=== PATIENT | male | born 1970 | race Caucasian/White ===

== ENCOUNTER 2018-02-16 13:30 | Observation (INO) | payer OTHER ==
[2018-02-16 14:01] LABS: #Basophils 0.1 thou/uL (0.0-0.2); #Eosinphils 0.1 thou/uL (0.0-0.7); #Lymphocytes 2.1 thou/uL (1.20-3.40); #Monocytes 0.7 thou/uL (0.11-0.59); #Neutrophils 6.9 thou/uL (1.40-6.50); %Basophils 1.2 % (0.0-1.0); %Lymphocytes 21.2 % (21.0-51.0); %Monocytes 7.2 % (0.0-10.0); %Neutrophils 69.4 % (42.0-75.0); Hemoglobin 14.1 g/dL (14.0-18.0); Mean Corpuscular HGB CONC 33.5 g/dL (32.0-36.0); Mean Corpuscular Hemoglobin 27.1 pg (27.0-31.0); Mean Corpuscular Volume 80.8 fl (80.0-94.0); Mean Platelet Volume 9.5 fL (7.4-10.4); Platelet Count 181 thou/uL (130-400); Red Blood Cell (RBC) Count 5.22 mill/uL (4.70-6.10)
[2018-02-16] MEDS ORDERED: Nitroglycerin 2% Ointment 1 INCH/1 GM Packet ONE (14:07)
[2018-02-16 14:15] LABS: ALT (SGPT) 34 U/L (8-55); AST (SGOT) 28 U/L (5-34); Albumin 4.3 g/dL (3.5-5.0); Alkaline Phosphatase 84 U/L (40-150); Anion Gap 12 mmol/L (10-20); BUN (Urea Nitrogen) 8 mg/dL (8.9-20.6); CKMB 1.4 ng/mL (0-6.6); Calc. Creatinine Clearance 0 mL/min (70-130); Calcium 9.1 mg/dL (7.8-10.44); Carbon Dioxide 28 mmol/L (22-29); Chloride 105 mmol/L (98-107); Estimated GFR-MDRD 58; Globulin 2.4 g/dL (2.4-3.5); Glucose 91 mg/dL (70-105); Lipase 23 U/L (8-78); Potassium 3.9 mmol/L (3.5-5.1); Protein, Total 6.7 g/dL (6.0-8.3); Sodium 141 mmol/L (136-145); Troponin I Less than 0.010 ng/mL (< 0.028)
--- NOTE | 2018-02-16 14:30 | RAD ---
CHEST 1 VIEW: HISTORY: Chest pain. COMPARISON: Chest radiograph 2015. FINDINGS: Lungs are slightly hypoinflated. No focal airspace consolidation, pneumothorax, or effusion. Cardia c silhouette and mediastinal contours are within normal limits given lung hypoinflation. IMPRESSION: No acute intrathoracic abnormality. POS: [facility]
[2018-02-16 16:17] VITALS: BMI 38.6
[2018-02-16] MEDS ORDERED: Nitroglycerin 2% Ointment 1 INCH/1 GM Packet TOP SCH (18:00)
[2018-02-16 18:22] LABS: Troponin I Less than 0.010 ng/mL (< 0.028)
[2018-02-16] MEDS ORDERED: Ondansetron ODT 4 MG TAB PO PRN (19:11)
[2018-02-16] MEDS ORDERED: HYDROcodone/Acetaminophen 5/325 mg Tablet PO PRN (19:11)
[2018-02-16] MEDS ORDERED: Ondansetron HCl/PF 4 MG/2 ML Vial IVP PRN (19:11)
[2018-02-16] MEDS ORDERED: HYDROcodone/Acetaminophen 10/325 mg Tablet PO PRN (19:11)
[2018-02-16] MEDS ORDERED: Acetaminophen 325 MG TAB PO PRN (19:11)
[2018-02-16] MEDS ORDERED: Enoxaparin Sodium 40 MG/0.4 ML SYRINGE SC SCH (19:30)
[2018-02-16 20:13] LABS: CKMB 1.3 ng/mL (0-6.6); Troponin I Less than 0.010 ng/mL (< 0.028)
[2018-02-16] MEDS: Metoprolol Tartrate 50 MG TAB PO SCH (20:30)
[2018-02-16] MEDS: Famotidine 20 MG TAB PO SCH (20:31)
[2018-02-16] MEDS: Nitroglycerin 2% Ointment 1 INCH/1 GM Packet TOP SCH (20:34)
[2018-02-17 03:33] LABS: #Basophils 0.1 thou/uL (0.0-0.2); #Eosinphils 0.1 thou/uL (0.0-0.7); #Lymphocytes 2.2 thou/uL (1.20-3.40); #Monocytes 0.7 thou/uL (0.11-0.59); #Neutrophils 4.6 thou/uL (1.40-6.50); %Basophils 0.7 % (0.0-1.0); %Eosinophils 1.5 % (0.0-10.0); %Monocytes 9.1 % (0.0-10.0); %Neutrophils 59.7 % (42.0-75.0); Hemoglobin 13.7 g/dL (14.0-18.0); Mean Corpuscular HGB CONC 34.3 g/dL (32.0-36.0); Mean Corpuscular Hemoglobin 28.3 pg (27.0-31.0); Mean Corpuscular Volume 82.4 fl (80.0-94.0); Mean Platelet Volume 7.9 fL (7.4-10.4); Platelet Count 134 thou/uL (130-400); RBC Distribution Width 13.7 % (11.5-14.5); Red Blood Cell (RBC) Count 4.84 mill/uL (4.70-6.10); White Blood Cell (WBC) Count 7.6 thou/uL (4.8-10.8)
[2018-02-17 03:46] LABS: Anion Gap 8 mmol/L (10-20); BUN (Urea Nitrogen) 9 mg/dL (8.9-20.6); Calc. Creatinine Clearance 116 mL/min (70-130); Calcium 9.1 mg/dL (7.8-10.44); Carbon Dioxide 32 mmol/L (22-29); Chloride 107 mmol/L (98-107); Cholesterol 100 mg/dl (< 200 Desired); Estimated GFR-MDRD 58; Glucose 99 mg/dL (70-105); HDL Cholesterol 20 mg/dL (>60 Neg Risk); LDL Cholesterol, Calculated 55 mg/dL; Magnesium 2.1 mg/dL (1.6-2.6); Potassium 4.3 mmol/L (3.5-5.1); Sodium 143 mmol/L (136-145); Triglycerides 124 mg/dL (Less than 150)
[2018-02-17 03:51] LABS: CKMB 1.2 ng/mL (0-6.6); Troponin I Less than 0.010 ng/mL (< 0.028)
[2018-02-17] MEDS: Nitroglycerin 2% Ointment 1 INCH/1 GM Packet TOP SCH ×3 (04:26→19:54)
[2018-02-17] MEDS: DULoxetine 60 MG CAP PO SCH ×2 (08:08→12:07)
[2018-02-17] MEDS: Famotidine 20 MG TAB PO SCH ×3 (08:09→19:54)
[2018-02-17] MEDS: Gabapentin 300 MG CAP PO SCH ×2 (08:09→12:08)
[2018-02-17] MEDS: Metoprolol Tartrate 50 MG TAB PO SCH ×3 (08:09→19:54)
[2018-02-17] MEDS: Enoxaparin Sodium 40 MG/0.4 ML SYRINGE SC SCH (08:09)
--- NOTE | 2018-02-17 13:59 | STRESS ---
Acquisition Time: 2018-02-17 09:09:41 Total Exercise Time: 00:04:00 Test Indications: CHEST PAIN Medications: Protocol: ADENOSINE Max HR: 101 BPM 58% of Pred: 174 BPM Max BP: 136/066 mmHG Max Work Load: 1.0 METS THE PATIENT WAS INJECTED WITH ADENOSINE. HE DID DEVELOP CHEST PAIN. THERE WAS NO SIGNIFICANT ST DEPRESSION. AWAIT NUCLEAR IMAGES FOR DEFINITIVE DIAGNOSIS. Confirmed by CHUCHO ROWE ([id number]), senior editor KAYLYNN SPRING ([id number]) on 02/17/2018 1:58:56 PM Referred By: MD Oscar PADILLA Confirmed By:CHUCHO ROWE
[2018-02-17] MEDS ORDERED: ADENOSINE 60 MG/20 ML VIAL ONE (16:01)
--- NOTE | 2018-02-17 16:07 | PDOC.PN ---
- Subjective Encounter Start Date: 02/17/18 Encounter Start Time: 16:05 Mr. Shi was seen today in follow-up of chest pain. He has not had any further episodes. - Objective Resuscitation Status: Resuscitation Status FULL:Full Resuscitation MAR Reviewed: Yes Vital Signs & Weight: Vital Signs (12 hours) Temp Pulse Resp BP Pulse Ox 02/17/18 14:48 98.9 F 68 18 127/71 96 02/17/18 11:38 98.8 F 81 18 129/81 97 02/17/18 08:00 98.4 F 68 18 02/17/18 07:18 98.4 F 68 18 131/76 95 I&O: 02/16/18 02/17/18 02/18/18 06:59 06:59 06:59 Intake Total 240 Output Total 300 Balance -60 Result Diagrams: 02/17/18 03:17 02/17/18 03:17 Phys Exam - Physical Examination HEENT: PERRLA Respiratory: no wheezing, no rales, no rhonchi, clear to auscultation bilateral Cardiovascular: RRR, no significant murmur, no rub Gastrointestinal: soft, non-tender, positive bowel sounds Musculoskeletal: no edema, edema present Dx/Plan (1) Chest pain Code(s): R07.9 - CHEST PAIN, UNSPECIFIED Status: Acute (2) Hypertension Code(s): I10 - ESSENTIAL (PRIMARY) HYPERTENSION Status: Acute - Plan * Chest pain- no further episodes * HTN- blood pressure is stable * Await the final results of the stress test.
--- NOTE | 2018-02-18 00:12 | HP ---
DATE OF ADMISSION: 02/16/2018 PRIMARY CARE PHYSICIAN: Dr. Edilma Chaudhari. CHIEF COMPLAINT: Chest pain. HISTORY OF PRESENT ILLNESS: Mr. Shi is a pleasant 47-year-old gentleman who presented initially to an outside Emergency Department. He had chest pain several days ago that lasted 2-1/2 to 3 hours and it went away spontaneously. The sensation recurred today and was accompanied by shaking hands, who presented for evaluation. There, he was given aspirin 324 mg, placed on nitro paste, and initial set of biomarkers were normal. He penaloza bsequently transferred here for further workup. The patient subsequently presented here for evaluati on. Workup in our emergency department included second set of biomarkers, which was normal. He was continued on the nitro paste and we were subsequently called for admission. The patient denies any current pain, though he does have a little bit of discomfort just under the st ernum. No fevers or chills, no nausea, vomiting, no cough or sputum production. No GI bleeding. PAST MEDICAL HISTORY: Hypertension. PAST SURGICAL HISTORY: 1. Bilateral carpal tunnel release. 2. Back surgery and a lumbar diskectomy and fusion by Dr. Elias in 2010. HOME MEDICATIONS: 1. Toprol-XL 100 mg daily. 2. Duloxetine 60 mg daily. 3. Gabapentin 300 mg once a day. 4. Tramadol 50 mg p.o. q.6 hours p.r.n. 5. Multivitamin daily. ALLERGIES: CODEINE caused him to be confused. FAMILY HISTORY: Significant for hypertension and coronary artery disease that was early, I think in his 55 for his father, cancer in his father and atrial fibrillation in multiple members. SOCIAL HISTORY: Negative for habits x3. REVIEW OF SYSTEMS: A 10-point review of systems was performed, negative for all systems except as st ated as per HPI. PHYSICAL EXAMINATION: VITAL SIGNS: Temperature 98.0, pulse 68, blood pressure 127/85, respiratory rate 17, satting 98% on room air. GENERAL: He is awake. He is alert. He is oriented x3. He is a well-developed, well-nourished, whi te male who appears to be in no acute distress. HEENT: Head is normocephalic and atraumatic. His pupils are equal, round, reactive to light bilater ally. Mucous membranes are moist. No visible lesions or thrush. NECK: Supple, without lymphadenopathy, JVD, or thyromegaly. He has normal carotid upstrokes without bruits. LUNGS: Clear. There are no wheezes, no rales or rhonchi. Good air movement. Symmetrical chest exc ursion. No prolonged expiratory phase. CARDIOVASCULAR: Normal cardiac in regular. Normal S1, S2. No S3 or S4. No murmurs. ABDOMEN: Soft, nontender, nondistended. No masses or organomegaly. EXTREMITIES: Reveal no cyanosis, no clubbing, no edema, 2+ peripheral pulses in the dorsalis pedis, posterior tibial, and radial arteries bilaterally. SKIN: Warm, moist, and well-perfused. No rash or lesions. NEUROLOGIC: Cranial nerves II through XII are grossly intact. He has no focal deficits, 5/5 strengt h in all 4 extremities. He has normal speech pattern. MUSCULOSKELETAL: Normal to inspection. There is no inflamed joints. No palpable effusions. He has good range of motion. LABORATORY DATA: Sodium 141, potassium 3.9, chloride 105, bicarbonate 28, BUN 8, creatinine 1.33. C alcium is 9.1. Liver function within normal limits. CBC showed white count 10.0, hemoglobin 14.1, h ematocrit of 42.2, and platelet count is 181,000. CK-MB was normal at 1.4 and troponin I was undetec table less than 0.010 at the Urgent Care and here. X-RAY FINDINGS: Chest x-ray showed no acute cardiopulmonary disease. ASSESSMENT AND PLAN: 1. Chest pain with risk factors of hypertension as mentioned in family history. We will get serial cardiac biomarkers, place him cardioprotective medication with nitro paste, metoprolol, oxygen and as pirin. If biomarkers are negative, we will get a nuclear stress test in the morning. Place the linda ent in observation. 2. Hypertension. Patient is already on Toprol-XL. We will convert that to metoprolol tartrate 50 m g p.o. b.i.d., and continue nitro paste. We will have p.r.n. hydralazine if needed. 3. Depression, on duloxetine. 4. Neuropathy and chronic pain, on gabapentin and tramadol. We will place the patient in observation.
[2018-02-18] MEDS: Nitroglycerin 2% Ointment 1 INCH/1 GM Packet TOP SCH (05:05)
[2018-02-18] MEDS: DULoxetine 60 MG CAP PO SCH (09:21)
[2018-02-18] MEDS: Enoxaparin Sodium 40 MG/0.4 ML SYRINGE SC SCH (09:21)
[2018-02-18] MEDS: Famotidine 20 MG TAB PO SCH (09:22)
[2018-02-18] MEDS: Metoprolol Tartrate 50 MG TAB PO SCH (09:22)
[2018-02-18] MEDS: Gabapentin 300 MG CAP PO SCH (09:22)
--- NOTE | 2018-02-18 11:17 | NM ---
MYOCARDIAL PERFUSION STUDY: Date: 02-18-18 History: Chest pain. Radiopharmaceuticals: 33 mCi Technetium 99M Sestamibi IV for stress and 30.1 mCi Technetium 99M Sesta mibi IV at rest. Medications: 22 ml (66.1 mg) Adenosine IV. FINDINGS: No significant reversible defect is seen between the stress and resting acquisitions. However, at the ventricular apex there is a small defect noted on both the resting and stress acquisitions which charan nges positions between the rest and stress acquisitions which could be related to shifting soft tissu e attenuation between the stress and resting acquisitions. Quantitative analysis shows no significant reversible defect. The elizabeth images show normal ventricular wall motion and wall thickening. The marilee culated left ventricular ejection fraction is 61%. IMPRESSION: 1. Probably normal myocardial perfusion study without significant reversible defect seen to suggest i schemia. 2. Normal LV function with LVEF of 61%. POS: [facility]
--- NOTE | 2018-02-18 12:03 | PDOC.PN ---
- Subjective Encounter Start Date: 02/18/18 Encounter Start Time: 12:01 Mr. Shi was seen today in follow-up. He is feeling better. No new complaints. - Objective Resuscitation Status: Resuscitation Status FULL:Full Resuscitation MAR Reviewed: Yes Vital Signs & Weight: Vital Signs (12 hours) Temp Pulse Resp BP BP Pulse Ox 02/18/18 09:20 98.7 F 63 20 02/18/18 07:40 98.7 F 63 20 142/80 H 97 02/18/18 04:28 97.9 F 74 16 136/65 98 I&O: 02/17/18 02/18/18 02/19/18 06:59 06:59 06:59 Intake Total 240 1200 Output Total 300 500 Balance -60 700 Result Diagrams: 02/17/18 03:17 02/17/18 03:17 Phys Exam - Physical Examination HEENT: PERRLA Respiratory: no wheezing, no rales, no rhonchi, clear to auscultation bilateral Cardiovascular: RRR, no significant murmur, no rub Gastrointestinal: soft, non-tender, positive bowel sounds Musculoskeletal: no edema Dx/Plan (1) Chest pain Code(s): R07.9 - CHEST PAIN, UNSPECIFIED Status: Acute (2) Hypertension Code(s): I10 - ESSENTIAL (PRIMARY) HYPERTENSION Status: Acute - Plan * Chest pain- likely non-cardiac * HTN- blood pressure is well controlled * Stable for discharge home..
--- NOTE | 2018-02-18 12:27 | DIS ---
PRIMARY CARE PHYSICIAN: Dr. Edilma Chaudhari DATE OF DISCHARGE: 02/18/2018 DISCHARGE DISPOSITION: Home. PRIMARY DISCHARGE DIAGNOSES: 1. Chest pain, probable noncardiac. 2. Depression and anxiety. 3. Hypertension. DISCHARGE MEDICATIONS: Metoprolol 100 mg daily, gabapentin 300 mg daily, Cymbalta 60 mg daily, trama dol 50 mg q.4 as needed. PROCEDURES DONE DURING ADMISSION: The patient had a nuclear stress test which was probably normal. There was some evidence of apical attenuation, but no reversible defect to suggest ischemia. The eje ction fraction was calculated at 61%. CODE STATUS: Full code. ALLERGIES: CODEINE. HOSPITAL COURSE: Mr. Shi is a pleasant 47-year-old gentleman who presented to the emergency [facility] with complaints of chest pain. He also had noted some diaphoresis and a pressure as well. He was placed in observation. Troponins were completely normal. He had a cholesterol level done in which t he total cholesterol was 100, LDL was 55, HDL was 20, blood pressure remained very well controlled du ring his hospital stay. It is unclear the cause of his symptoms; however, does sound suspicious for possible anxiety. He says that he had had a stress test about 6 years ago in which case he was found to have some "changes there" and he proceeded onto have a cardiac catheterization and everything was considered normal at that time. He admits to having a lot of stress at work and it is possible that his symptoms could be stress related. A copy of his stress test was given to him along with his cho lesterol results and he is to follow up with his primary physician in a few weeks.
[2018-02-18 13:28] VITALS: BP 132/83; TEMP 98.4
== END 2018-02-18 13:20 | disposition home or self-care (01) ==
LOC: SCSER 13:30 → 2SW 16:16
PROVIDERS: ADMIT Internal Medicine; ATTEND Internal Medicine
DX: R07.9 Chest pain, unspecified (principal); F41.9 Anxiety disorder, unspecified; F32.9 Major depressive disorder, single episode, unspecified; I10 Essential (primary) hypertension; Z79.899 Other long term (current) drug therapy; Z88.5 Allergy status to narcotic agent; Z98.890 Other specified postprocedural states
CPT/HCPCS: 36415; 71045; 78452; 80048; 80053; 80061; 82553; 83690; 83735; 84484; 85025; 93005; 93017; 96372; A9500; G0378; J0153; J1650

== ENCOUNTER 2018-05-19 15:58 | Outpatient (CLI) | payer OTHER | END 2018-05-19 15:59 | disposition home or self-care (01) | LOC: LABBT 15:58 | PROVIDERS: ATTEND Orthopaedic Surgery | DX: Z01.812 Encounter for preprocedural laboratory examination (principal); S83.241A Other tear of medial meniscus, current injury, right knee, initial encounter | CPT/HCPCS: 93005; 93010 ==

== ENCOUNTER → 2018-05-21 | Day surgery (SDC) | payer OTHER ==
[2018-05-19 16:10] VITALS: BMI 38.4
[~2018-05-21] MED LIST: Bupivacaine/Epinephrine 0.25% 30 ML VIAL ONE; CEFAZOLIN/Water 2 GM/20 ML SYRINGE ONE; Fentanyl 100 MCG/2 ML VIAL ONE; Lidocaine 1% (PF) 30 ML VIAL ONE; Ondansetron HCl/PF 4 MG/2 ML Vial ONE
--- NOTE | 2018-05-21 11:21 | OP ---
DATE OF PROCEDURE: 05/21/2018. PREOPERATIVE DIAGNOSES: Right radial tear medial meniscus with complex component. POSTOPERATIVE DIAGNOSES: 1. A radial tear medial meniscus with complex component. 2. Grade I changes patellofemoral compartment. STAFF: Roger Garzon M.D. TREE CUTTER: None. ANESTHESIA: [place]. The patient received a LMA with 30 mL of Marcaine 0.25% with epinephrine and 30 m L of Marcaine plain, 1% lidocaine plain. ESTIMATED BLOOD LOSS: 10 mL. TOURNIQUET TIME: 15 minutes. ANTIBIOTICS: Ancef. COMPLICATIONS: None. HISTORY OF PRESENT ILLNESS: Mr. Shi is a 47-year-old male presenting with pain since October, pain with kneeling. The patient had pain at least 3 times a week. MRI showed a complex tear of the medial meniscus and a radial tear with some complex component. The ligaments are intact. The patien t overall had good cartilage surfaces on imaging. I discussed with the patient the risks, benefits o f medial meniscectomy to include pain, scar, bleeding, infection, damage to vital structures, decreas ed range of motion or strength, need for further surgeries, damage to vital structures, loss of life or limb. He understood the risks and benefits and elected to proceed. PROCEDURE IN DETAIL: After completion of timeout, designated the patient's right lower extremity as the operative side, based on site, consents, marking. After completion of timeout, the patient's rig ht lower extremity was prepped and draped in a sterile fashion. Tourniquet was brought up and left u p for a total of 15 minutes. An anterolateral and anteromedial portal were placed. Excised the fat pad, looked at ACL and PCL which were intact. Patellofemoral compartment had some grade I changes of the patella. Nothing within the medial lateral gutter, lateral compartment had no obvious gross tea r, it was probed and was stable, stable remnant. There was a radial tear component that was noted. The posteromedial horn of the medial meniscus which was debrided and shaved. There was a full comple x component which I debrided. I used a probe to probe any unstable components. I then looked just b ehind the PCL and looking for any flaps that could be up, I did not see any loose bodies. Being happ y with my completion of my procedure, I then washed, placed Marcaine, 30 mL preprocedure which was wa shed out during the case and I placed 30 mL of lidocaine intraarticularly and subcu.
== END ==
LOC: SDC 07:17
PROVIDERS: ATTEND Orthopaedic Surgery
PROC: 0SBC4ZZ Excision of Right Knee Joint, Percutaneous Endoscopic Approach (ICD-10-PCS; principal; 2018-05-21)
DX: S83.231A Complex tear of medial meniscus, current injury, right knee, initial encounter (principal); I10 Essential (primary) hypertension; F32.9 Major depressive disorder, single episode, unspecified; G25.81 Restless legs syndrome; G47.30 Sleep apnea, unspecified; Z88.5 Allergy status to narcotic agent; Z79.899 Other long term (current) drug therapy; Z99.89 Dependence on other enabling machines and devices
CPT/HCPCS: G8978-GP-CI; G8979-GP-CI; G8980-GP-CI; J2001; J2405; J3010

== ENCOUNTER 2023-03-18 14:54 | Outpatient (CLI) | payer BC | END 2023-03-18 14:55 | disposition home or self-care (01) | LOC: ULT 14:54 | PROVIDERS: ATTEND Internal Medicine | DX: R60.0 Localized edema (principal) | CPT/HCPCS: 93970 ==